=== PATIENT | male | born 1975 | race Asian ===

== ENCOUNTER 2018-11-04 09:32 | Day surgery (SDC) | payer OTHER ==
[2018-11-04] MEDS ORDERED: PROPOFOL 20 ML (10:51)
[2018-11-04] MEDS ORDERED: ROCURONIUM 50 MG INJ (10:51)
[2018-11-04] MEDS ORDERED: CEFAZOLIN 1 GM INJ (10:51)
[2018-11-04 10:52] LABS: INR 0.86; PROTIME 11.8 Sec (11.9-14.9); PT RATIO 0.9
[2018-11-04] MEDS ORDERED: MIDAZOLAM 1 MG/ML 2 ML INJ (10:52)
[2018-11-04] MEDS ORDERED: FENTAnyl 50 MCG/ML VIAL (10:52)
[2018-11-04] MEDS ORDERED: METOCLOPRAMIDE 10 MG INJ (10:52)
[2018-11-04] MEDS ORDERED: ONDANSETRON 4 MG INJ (10:52)
[2018-11-04 10:53] LABS: PARTIAL THROMBOPLASTIN TIME 30.9 Sec (23.0-35.0)
[2018-11-04 10:58] LABS: ALANINE AMINOTRANSFERASE 27 IU/L (13-69); ALBUMIN 4.6 g/dl (3.3-4.9); ALBUMIN/GLOBULIN RATIO 1.53; ALKALINE PHOSPHATASE 53 IU/L (42-121); ANION GAP 10 (5-13); ASPARTATE AMINO TRANSFERASE 23 IU/L (15-46); BILIRUBIN,INDIRECT 0.5 mg/dl (0-1.1); BILIRUBIN,TOTAL 0.5 mg/dl (0.2-1.3); BLOOD UREA NITROGEN 17 mg/dl (7-20); CALCIUM 9.4 mg/dl (8.4-10.2); CARBON DIOXIDE 26 mmol/L (21-31); CHLORIDE 107 mmol/L (97-110); CREATININE 0.89 mg/dl (0.61-1.24); Estimated GFR > 60 mL/min (>60); GLUCOSE 96 mg/dl (70-220); POTASSIUM 4.1 mmol/L (3.5-5.1); SODIUM 143 mmol/L (135-144); TOTAL PROTEIN 7.6 g/dl (6.1-8.1)
[2018-11-04] MEDS ORDERED: OXYCODONE/ACETAMINOPHEN (5/325) TAB PO (11:00)
[2018-11-04] MEDS ORDERED: hydrALAzine 20 MG INJ IV (11:00)
[2018-11-04] MEDS ORDERED: FENTAnyl 50 MCG/ML VIAL IV ×3 (11:00)
[2018-11-04] MEDS ORDERED: HYDROmorphONE 1 MG/5 ML IV SYRINGE IV ×3 (11:00)
[2018-11-04] MEDS ORDERED: MEPERIDINE 25 MG INJ IV (11:00)
[2018-11-04] MEDS ORDERED: DIPHENHYDRAMINE 50 MG INJ IV (11:00)
[2018-11-04] MEDS ORDERED: ONDANSETRON 4 MG INJ IV (11:00)
[2018-11-04] MEDS ORDERED: LABETALOL HCL 20MG INJ IV (11:00)
[2018-11-04] MEDS: BACITRACIN/POLYMYXIN 28.35 GM OINT TOP (11:38)
[2018-11-04] MEDS: COCAINE 4% 4 ML TOP (11:39)
[2018-11-04] MEDS: LIDOCAINE 1%/EPI (1:100,000) (MDV) 20 ML (11:39)
[2018-11-04] MEDS ORDERED: NEOSTIGMINE 3 MG/3 ML SYRINGE (12:02)
[2018-11-04] MEDS ORDERED: GLYCOPYRROLATE 0.4 MG INJ (12:02)
[2018-11-04] MEDS: OXYCODONE/ACETAMINOPHEN (5/325) TAB PO (12:55)
== END 2018-11-04 14:50 | disposition home or self-care (01) ==
LOC: SDS 09:32
DX: J34.2 Deviated nasal septum (principal); J34.3 Hypertrophy of nasal turbinates; E78.5 Hyperlipidemia, unspecified; E03.9 Hypothyroidism, unspecified
CPT/HCPCS: 30140; 80053; 85610; 85730; 88300